=== PATIENT | female | born 1990 | race Caucasian/White ===

== ENCOUNTER 2017-02-06 15:56 | Emergency (ER) | payer BC, OTHER ==
[~2017-02-06] VITALS: Ht 157.5 cm; Wt 61.2 kg
--- NOTE | 2017-02-06 17:07 | NUR ---
DR Del Real at the bedside for eval and exam.
[2017-02-06 17:18] VITALS: BP 102/74
--- NOTE | 2017-02-06 17:19 | NUR ---
Patient discharged to home in stable conditon. Written and verbal after care instructions given. Patient verbalizes understanding of instructions.
== END 2017-02-06 17:19 | disposition home or self-care (01) ==
LOC: ER 15:56
DX: S90.562A Insect bite (nonvenomous), left ankle, initial encounter (principal); S90.561A Insect bite (nonvenomous), right ankle, initial encounter; L08.9 Local infection of the skin and subcutaneous tissue, unspecified; W57.XXXA Bitten or stung by nonvenomous insect and other nonvenomous arthropods, initial encounter; Y93.89 Activity, other specified; Y92.9 Unspecified place or not applicable; Y99.9 Unspecified external cause status
CPT/HCPCS: A4663

== ENCOUNTER 2021-07-26 21:44 | Emergency (ER) | payer BC, OTHER ==
[~2021-07-26] VITALS: Ht 157.5 cm; Wt 54.4 kg
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
--- NOTE | 2021-07-26 22:10 | NUR ---
Dr. Ruffin at bedside for MSE.
--- NOTE | 2021-07-26 22:17 | NUR ---
radiology at bedside for xray.
[2021-07-26] MEDS ORDERED: ONDA4TAB5 PO (22:53)
[2021-07-26] MEDS ORDERED: OXYC-128 PO (22:53)
--- NOTE | 2021-07-26 23:09 | NUR ---
Patient discharged to home in stable condition. Written and verbal after care instructions given. Patient verbalizes understanding of instructions. Stressed follow up or return to ER for worsening s/s. pt ambulatry with steady gait, denies pain.
[2021-07-26 23:12] VITALS: BP 130/80
== END 2021-07-26 23:12 | disposition home or self-care (01) ==
LOC: ER 21:53
DX: S16.1XXA Strain of muscle, fascia and tendon at neck level, initial encounter (principal); V49.40XA Driver injured in collision with unspecified motor vehicles in traffic accident, initial encounter; Y92.410 Unspecified street and highway as the place of occurrence of the external cause
CPT/HCPCS: A4663